=== PATIENT | male | born 1955 | race Caucasian/White ===

== ENCOUNTER → 2024-07-24 12:56 | Outpatient (REF) | payer OTHER, SELFPAY | LOC: PAVMRI 12:56 | PROVIDERS: ATTENDING PHYSICIAN Nurse Practitioner Adult Health; FAMILY PHYSICIAN Internal Medicine | DX: M54.16 Radiculopathy, lumbar region (principal); M51.360 Other intervertebral disc degeneration, lumbar region with discogenic back pain only | CPT/HCPCS: 72148 ==